=== PATIENT | male | born 1955 | race Asian ===

== ENCOUNTER 2017-05-28 08:53 | Inpatient (IN) | payer MEDICAID ==
[~2017-05-28] VITALS: Ht 157.5 cm; Wt 67.4 kg
[2017-05-28] MEDS ORDERED: ALBUTEROL SULFATE 2.5 MG/0.5 ML NEB SOLUTION NEB ONE (09:15)
[2017-05-28] MEDS ORDERED: IPRATROPIUM BROMIDE 0.5 MG/2.5 ML NEB SOLUTION NEB ONE (09:15)
[2017-05-28 09:30] LABS: HEMOGLOBIN 10.9 g/dL (13.5-17.5); MEAN CORPUSCULAR HEMOGLOBIN 32.9 pg (26.0-34.0); MEAN CORPUSCULAR HGB CONC 33.2 G/dL (31.0-37.0); MEAN CORPUSCULAR VOLUME 99 fL (80-100); PLATELET COUNT (AUTO) 56 K/uL (150-450); RED BLOOD CELL COUNT(AUTO) 3.32 MIL/uL (4.50-5.90); RED CELL DISTRIBUTION WIDTH 18.7 % (11.5-14.5); WHITE BLOOD COUNT (AUTO) 12.7 K/uL (4.5-11.0)
[2017-05-28 09:48] LABS: B-TYPE NATRIURETIC PEPTIDE 1110 pg/mL (0-100)
[2017-05-28 10:00] LABS: BAND NEUTROPHILS % (MANUAL) 20 % (1-5); LYMPHOCYTES % (MANUAL) 6 % (22-44); RBC MORPHOLOGY COMMENT ABNORMAL RBC MORPH; TOTAL CELLS COUNTED 100
[2017-05-28] MEDS ORDERED: FUROSEMIDE 40 MG/4 ML VIAL IVP ONE (10:00)
[2017-05-28] MEDS ORDERED: NITROGLYCERIN 2% (1 GM=INCH) PACKET TP ONE (10:00)
[2017-05-28 10:01] LABS: INR 1.6 (0.9-1.1); PROTHROMBIN TIME 16.8 SEC (9.4-11.6)
[2017-05-28] MEDS ORDERED: CefTRIAXone 1 GM/DEXTROSE 50 ML IV ONE (10:15)
[2017-05-28] MEDS ORDERED: AZITHROMYCIN 250 MG in SODIUM CHLORIDE 0.9% 150 ML IV ONE (10:15)
[2017-05-28 10:24] LABS: ALANINE AMINOTRANSFERASE 496 U/L (12-78); ALBUMIN 5.1 g/dL (3.4-5.0); ANION GAP 29 mmol/L (8-16); ASPARTATE AMINOTRANSFERASE 389 U/L (15-37); BILIRUBIN,TOTAL 6.1 mg/dL (0.1-1.0); CALCIUM, TOTAL 9.7 mg/dL (8.8-10.5); CHLORIDE 105 mmol/L (98-107); CREATINE KINASE MB 76.4 ng/mL (0-5); CREATININE 1.19 mg/dL (0.60-1.30); GLOMERULAR FILTR. RATE CALC > 60 mL/min (>60); POTASSIUM 4.4 mmol/L (3.5-5.1); SODIUM SERUM 143 mmol/L (136-145); TOTAL PROTEIN, SERUM 7.8 g/dL (6.4-8.2); UREA NITROGEN, BLOOD 38 mg/dL (7-18)
[2017-05-28 10:25] LABS: CREATINE KINASE, TOTAL 2620 U/L (39-308)
[2017-05-28 10:29] LABS: CARBON DIOXIDE 9 mmol/L (22-29)
[2017-05-28 10:31] LABS: APPEARANCE,URINE CLEAR (CLEAR); GLUCOSE, URINE (UA) NEGATIVE (NEGATIVE); KETONES,URINE 40 mg/dL (NEGATIVE); LEUKOCYTE ESTERASE ,URINE NEGATIVE (NEGATIVE); PROTEIN,URINE POS 1+ (NEGATIVE)
[2017-05-28 10:48] LABS: ADD UA MICROSCOPIC YES; OCCULT BLOOD,URINE TRACE (NEGATIVE); RBC,URINE 0-2 /HPF (0-2); WBC,URINE None Seen /HPF (0-5)
[2017-05-28 11:12] LABS: ABG BASE EXCESS -17.5 mmol/L (-2.0-3.0); ABG HCO3 12.6 mmol/L (22.0-26.0); ABG OXYHEMOGLOBIN 88.2 % (94.0-100.0); TEMPERATURE, FAHRENHEIT, BG 98.8 FAHREN (96.0-98.6)
[2017-05-28 11:13] LABS: ABG PCO2 17 mmHg (35-45)
[2017-05-28 12:24] LABS: LACTIC ACID 11.4 mmol/L (0.4-2.0)
[2017-05-28] MEDS ORDERED: SUCCINYLCHOLINE CHLORIDE 20 MG/ML 10 ML VIAL ONE (12:53)
[2017-05-28] MEDS ORDERED: RAPID SEQUENCE KIT [RSI] 1 EACH KIT ONE ×2 (12:53)
[2017-05-28] MEDS ORDERED: ONDANSETRON HCL 4 MG/2 ML VIAL ONE (12:59)
[2017-05-28] MEDS ORDERED: PROPOFOL 1000 MG/ISO-OSM 100 ML IV ONE (13:08)
[2017-05-28 13:23] LABS: ACETAMINOPHEN < 2 mcg/mL (10-30); SALICYLATE < 2.8 mg/dL (2.8-20.0)
[2017-05-28 13:34] LABS: REFLEX LACTIC ACID? YES YES
[2017-05-28] MEDS: PROPOFOL 1000 MG/ISO-OSM 100 ML IV PRN ×3 (14:36→23:29)
[2017-05-28] MEDS ORDERED: ONDANSETRON HCL 4 MG/2 ML VIAL IVP ONE (14:45)
[2017-05-28 15:28] VITALS: BP 110/65
[2017-05-28 15:52] LABS: ABG A-A DIFF O2 306.8 mmHg (10-20.0); ABG BASE EXCESS -12.5 mmol/L (-2.0-3.0); ABG HCO3 15.7 mmol/L (22.0-26.0); ABG OXYHEMOGLOBIN 96.3 % (94.0-100.0); ABG PCO2 24 mmHg (35-45); ABG PH 7.353 (7.35-7.450); ALLEN TEST, BLOOD GAS Positive; TEMPERATURE, FAHRENHEIT, BG 98.1 FAHREN (96.0-98.6)
[2017-05-28 16:00] VITALS: BP 86/53
[2017-05-28] MEDS ORDERED: VANCOMYCIN HCL 1 GM/D5% WATER 200 ML IV ONE (16:00)
[2017-05-28] MEDS ORDERED: PNEUMOCOCCAL VACCINE POLYVALENT 0.5 ML VIAL [PPSV23] IM ONE (17:15)
[2017-05-28] MEDS ORDERED: SODIUM CHLORIDE 0.9% 250 ML IV ONE (17:28)
[2017-05-28] MEDS ORDERED: BARIUM SULFATE 0.1% SUSPENSION 450 ML BOTTLE ONE (17:34)
[2017-05-28] MEDS ORDERED: SODIUM BICARBONATE [ADULT] 8.4% 50 MEQ/50 ML SYRINGE IVP ONE (18:30)
[2017-05-28] MEDS: NOREPINEPHRINE 4 MG/D5%-WATER 250 ML IV PRN (19:16)
[2017-05-28] MEDS: SODIUM BICARBONATE 100 MEQ in DEXTROSE 5%-WATER 1,000 ML IV SCH (19:16)
[2017-05-28 20:00] VITALS: BP 85/53
[2017-05-28 21:32] LABS: INFLUENZA TYPE B NEGATIVE FOR TYPE B (NEGATIVE)
[2017-05-29] VITALS (8 sets, daily range): BP systolic 83–103; BP diastolic 5–59
[2017-05-29] MEDS: PROPOFOL 1000 MG/ISO-OSM 100 ML IV PRN ×3 (04:07→20:15)
[2017-05-29] MEDS: NOREPINEPHRINE 4 MG/D5%-WATER 250 ML IV PRN (05:42)
[2017-05-29 05:49] LABS: ANION GAP 7 mmol/L (8-16); CALCIUM, TOTAL 8.1 mg/dL (8.8-10.5); CARBON DIOXIDE 27 mmol/L (22-29); CHLORIDE 106 mmol/L (98-107); CREATININE 1.03 mg/dL (0.60-1.30); GLOMERULAR FILTR. RATE CALC > 60 mL/min (>60); POTASSIUM 3.5 mmol/L (3.5-5.1); SODIUM SERUM 140 mmol/L (136-145); THYROID STIMULATING HORMONE 0.31 uIU/mL (0.36-3.74); UREA NITROGEN, BLOOD 33 mg/dL (7-18)
[2017-05-29 06:06] LABS: PHOSPHORUS 1.2 mg/dL (2.5-4.9)
[2017-05-29 06:10] LABS: EOSINOPHILS % (AUTO) 0.3 % (1.0-6.0); HEMATOCRIT 27.9 % (41-53); HEMOGLOBIN 9.5 g/dL (13.5-17.5); LYMPHOCYTES # (AUTO) 0.3 K/uL (1.0-4.8); LYMPHOCYTES % (AUTO) 4.3 % (22.0-44.0); MEAN CORPUSCULAR HEMOGLOBIN 33.1 pg (26.0-34.0); MEAN CORPUSCULAR HGB CONC 33.9 G/dL (31.0-37.0); MEAN CORPUSCULAR VOLUME 98 fL (80-100); MONOCYTES # (AUTO) 0.2 K/uL (0.1-1.0); MONOCYTES % (AUTO) 2.2 % (2.0-9.0); NEUTROPHILS # (AUTO) 6.6 K/uL (1.8-7.7); PLATELET COUNT (AUTO) 42 K/uL (150-450); RED BLOOD CELL COUNT(AUTO) 2.86 MIL/uL (4.50-5.90); RED CELL DISTRIBUTION WIDTH 18.3 % (11.5-14.5); WHITE BLOOD COUNT (AUTO) 7.1 K/uL (4.5-11.0)
[2017-05-29 06:18] LABS: NEUTROPHILS % (AUTO) 93.2 % (40.0-70.0)
[2017-05-29] MEDS ORDERED: ALBUTEROL SULFATE 2.5 MG/0.5 ML NEB SOLUTION NEB PRN (07:15)
[2017-05-29] MEDS ORDERED: POTASSIUM PHOS,M-BASIC-D-BASIC 30 MEQ in DEXTROSE 5%-WATER 150 ML IV ONE (07:15)
[2017-05-29] MEDS ORDERED: IPRATROPIUM BROMIDE 0.5 MG/2.5 ML NEB SOLUTION NEB PRN (07:15)
[2017-05-29] MEDS ORDERED: ONDANSETRON HCL 4 MG/2 ML VIAL IVP PRN (07:15)
[2017-05-29 07:48] LABS: ALANINE AMINOTRANSFERASE 344 U/L (12-78); ALBUMIN 3.7 g/dL (3.4-5.0); ASPARTATE AMINOTRANSFERASE 225 U/L (15-37); TOTAL PROTEIN, SERUM 5.5 g/dL (6.4-8.2)
[2017-05-29 07:49] LABS: B-TYPE NATRIURETIC PEPTIDE 454 pg/mL (0-100)
[2017-05-29] MEDS: VANCOMYCIN HCL 1 GM/D5% WATER 200 ML IV SCH ×2 (08:38→20:13)
[2017-05-29] MEDS: PANTOPRAZOLE SODIUM 40 MG/VIAL IVP SCH (08:38)
[2017-05-29] MEDS: CefTRIAXone 1 GM/DEXTROSE 50 ML IV SCH (08:39)
[2017-05-29 09:27] LABS: RBC MORPHOLOGY COMMENT ABNORMAL RBC MORPH
[2017-05-29 09:29] LABS: ABG BASE EXCESS 6.5 mmol/L (-2.0-3.0); ABG HCO3 30.1 mmol/L (22.0-26.0); ABG OXYHEMOGLOBIN 95.8 % (94.0-100.0); ABG PCO2 34 mmHg (35-45); ABG PH 7.543 (7.35-7.450); TEMPERATURE, FAHRENHEIT, BG 98.8 FAHREN (96.0-98.6)
[2017-05-29] MEDS: AZITHROMYCIN 500 MG/NS 250 ML IV SCH (10:00)
[2017-05-29] MEDS: SODIUM BICARBONATE 100 MEQ in DEXTROSE 5%-WATER 1,000 ML IV SCH (10:13)
[2017-05-29] MEDS ORDERED: SODIUM CHLORIDE 0.9% 250 ML IV ONE (11:50)
[2017-05-29] MEDS ORDERED: ETOMIDATE 2 MG/ML 10 ML VIAL IV ONE (17:01)
[2017-05-30] VITALS (8 sets, daily range): BP systolic 89–103; BP diastolic 50–65
[2017-05-30] MEDS: SODIUM BICARBONATE 100 MEQ in DEXTROSE 5%-WATER 1,000 ML IV SCH ×2 (01:36→17:38)
[2017-05-30] MEDS: PROPOFOL 1000 MG/ISO-OSM 100 ML IV PRN ×4 (03:38→18:45)
[2017-05-30 05:55] LABS: ALANINE AMINOTRANSFERASE 242 U/L (12-78); ALBUMIN 3.2 g/dL (3.4-5.0); ANION GAP 10 mmol/L (8-16); ASPARTATE AMINOTRANSFERASE 143 U/L (15-37); BILIRUBIN,TOTAL 5.6 mg/dL (0.1-1.0); CALCIUM, TOTAL 7.9 mg/dL (8.8-10.5); CARBON DIOXIDE 26 mmol/L (22-29); CHLORIDE 105 mmol/L (98-107); CREATININE 0.81 mg/dL (0.60-1.30); GLOMERULAR FILTR. RATE CALC > 60 mL/min (>60); PHOSPHORUS 1.7 mg/dL (2.5-4.9); POTASSIUM 3.3 mmol/L (3.5-5.1); SODIUM SERUM 141 mmol/L (136-145); TOTAL PROTEIN, SERUM 5.5 g/dL (6.4-8.2); UREA NITROGEN, BLOOD 20 mg/dL (7-18)
[2017-05-30] MEDS: NOREPINEPHRINE 4 MG/D5%-WATER 250 ML IV PRN ×2 (06:09→22:13)
[2017-05-30 06:43] LABS: EOSINOPHILS % (AUTO) 2.6 % (1.0-6.0); HEMATOCRIT 27.8 % (41-53); HEMOGLOBIN 9.5 g/dL (13.5-17.5); LYMPHOCYTES # (AUTO) 0.4 K/uL (1.0-4.8); MEAN CORPUSCULAR HGB CONC 34.2 G/dL (31.0-37.0); MEAN CORPUSCULAR VOLUME 97 fL (80-100); MONOCYTES # (AUTO) 0.2 K/uL (0.1-1.0); MONOCYTES % (AUTO) 2.8 % (2.0-9.0); NEUTROPHILS # (AUTO) 5.5 K/uL (1.8-7.7); NEUTROPHILS % (AUTO) 88.6 % (40.0-70.0); PLATELET COUNT (AUTO) 42 K/uL (150-450); RED BLOOD CELL COUNT(AUTO) 2.88 MIL/uL (4.50-5.90); RED CELL DISTRIBUTION WIDTH 18.2 % (11.5-14.5); WHITE BLOOD COUNT (AUTO) 6.2 K/uL (4.5-11.0)
[2017-05-30] MEDS: VANCOMYCIN HCL 1 GM/D5% WATER 200 ML IV SCH ×2 (08:00→19:51)
[2017-05-30] MEDS: PANTOPRAZOLE SODIUM 40 MG/VIAL IVP SCH (08:00)
[2017-05-30] MEDS: CefTRIAXone 1 GM/DEXTROSE 50 ML IV SCH (08:01)
[2017-05-30 08:39] LABS: RBC MORPHOLOGY COMMENT ABNORMAL RBC MORPH
[2017-05-30] MEDS: AZITHROMYCIN 500 MG/NS 250 ML IV SCH (09:35)
[2017-05-30] MEDS ORDERED: WATER IV ONE (13:15)
[2017-05-30] MEDS ORDERED: DEXTROSE 5% IV ONE (13:15)
[2017-05-30] MEDS ORDERED: POTASSIUM PHOS M BASIC D BASIC IV ONE (13:15)
[2017-05-30] MEDS: ALBUMIN HUMAN 25%-12.5GM/50ML 50 ML IV SCH (14:28)
[2017-05-30] MEDS ORDERED: PNEUMOCOCCAL VACCINE POLYVALENT 0.5 ML VIAL [PPSV23] IM ONE (23:15)
[2017-05-31] VITALS: BP 100/59
[2017-05-31] MEDS: ALBUMIN HUMAN 25%-12.5GM/50ML 50 ML IV SCH ×2 (01:31→13:46)
[2017-05-31 04:00] VITALS: BP 101/35
[2017-05-31] MEDS: PROPOFOL 1000 MG/ISO-OSM 100 ML IV PRN ×4 (04:00→18:08)
[2017-05-31 05:28] LABS: EOSINOPHILS % (AUTO) 6.3 % (1.0-6.0); HEMATOCRIT 28.5 % (41-53); HEMOGLOBIN 9.5 g/dL (13.5-17.5); LYMPHOCYTES # (AUTO) 0.3 K/uL (1.0-4.8); LYMPHOCYTES % (AUTO) 7.7 % (22.0-44.0); MEAN CORPUSCULAR HEMOGLOBIN 32.4 pg (26.0-34.0); MEAN CORPUSCULAR HGB CONC 33.4 G/dL (31.0-37.0); MEAN CORPUSCULAR VOLUME 97 fL (80-100); MONOCYTES # (AUTO) 0.1 K/uL (0.1-1.0); MONOCYTES % (AUTO) 2.2 % (2.0-9.0); NEUTROPHILS # (AUTO) 3.8 K/uL (1.8-7.7); NEUTROPHILS % (AUTO) 83.8 % (40.0-70.0); PLATELET COUNT (AUTO) 39 K/uL (150-450); RED BLOOD CELL COUNT(AUTO) 2.94 MIL/uL (4.50-5.90); RED CELL DISTRIBUTION WIDTH 18.3 % (11.5-14.5); WHITE BLOOD COUNT (AUTO) 4.5 K/uL (4.5-11.0)
[2017-05-31 07:15] LABS: ALANINE AMINOTRANSFERASE 174 U/L (12-78); ALBUMIN 3.3 g/dL (3.4-5.0); ANION GAP 7 mmol/L (8-16); ASPARTATE AMINOTRANSFERASE 88 U/L (15-37); BILIRUBIN,TOTAL 6.1 mg/dL (0.1-1.0); CALCIUM, TOTAL 7.9 mg/dL (8.8-10.5); CARBON DIOXIDE 28 mmol/L (22-29); CHLORIDE 105 mmol/L (98-107); GLOMERULAR FILTR. RATE CALC > 60 mL/min (>60); POTASSIUM 3.5 mmol/L (3.5-5.1); SODIUM SERUM 140 mmol/L (136-145); TOTAL PROTEIN, SERUM 5.3 g/dL (6.4-8.2); UREA NITROGEN, BLOOD 12 mg/dL (7-18)
[2017-05-31 07:27] LABS: RBC MORPHOLOGY COMMENT ABNORMAL RBC MORPH
[2017-05-31] MEDS ORDERED: SODIUM CHLORIDE 0.9% 250 ML IV ONE (07:42)
[2017-05-31] MEDS: CefTRIAXone 1 GM/DEXTROSE 50 ML IV SCH (07:50)
[2017-05-31] MEDS: PANTOPRAZOLE SODIUM 40 MG/VIAL IVP SCH (07:50)
[2017-05-31 08:00] VITALS: BP 121/72
[2017-05-31] MEDS: VANCOMYCIN HCL 1.25 GM in DEXTROSE 5%-WATER 250 ML IV SCH ×3 (08:25→23:47)
[2017-05-31] MEDS: SODIUM BICARBONATE 100 MEQ in DEXTROSE 5%-WATER 1,000 ML IV SCH (08:26)
[2017-05-31] MEDS: AZITHROMYCIN 500 MG/NS 250 ML IV SCH (09:12)
[2017-05-31] MEDS ORDERED: POTASSIUM CHLORIDE 10% 40 MEQ/30 ML LIQUID UDCUP NG ONE (10:30)
[2017-05-31] MEDS ORDERED: SODIUM CHLORIDE 0.9% 1,000 ML IV ONE (10:30)
[2017-05-31] MEDS: POTASSIUM PHOS/SODIUM PHOS MIXTURE 1 POWDER PACKET NG SCH ×2 (10:53→20:07)
[2017-05-31 12:00] VITALS: BP 87/57
[2017-05-31 16:00] VITALS: BP 101/58
[2017-05-31 20:00] VITALS: BP 101/61
[2017-06-01] VITALS: BP 102/59
[2017-06-01] MEDS: PROPOFOL 1000 MG/ISO-OSM 100 ML IV PRN ×4 (00:53→18:33)
[2017-06-01] MEDS: SODIUM BICARBONATE 100 MEQ in DEXTROSE 5%-WATER 1,000 ML IV SCH (01:05)
[2017-06-01] MEDS: ALBUMIN HUMAN 25%-12.5GM/50ML 50 ML IV SCH (01:30)
[2017-06-01] MEDS: NOREPINEPHRINE 4 MG/D5%-WATER 250 ML IV PRN (02:45)
[2017-06-01 04:00] VITALS: BP 108/57
[2017-06-01 05:19] LABS: ALANINE AMINOTRANSFERASE 124 U/L (12-78); ALBUMIN 3.1 g/dL (3.4-5.0); ANION GAP 5 mmol/L (8-16); ASPARTATE AMINOTRANSFERASE 53 U/L (15-37); BILIRUBIN,TOTAL 4.3 mg/dL (0.1-1.0); CALCIUM, TOTAL 7.6 mg/dL (8.8-10.5); CARBON DIOXIDE 28 mmol/L (22-29); CHLORIDE 105 mmol/L (98-107); GLOMERULAR FILTR. RATE CALC > 60 mL/min (>60); PHOSPHORUS 1.9 mg/dL (2.5-4.9); POTASSIUM 3.4 mmol/L (3.5-5.1); SODIUM SERUM 138 mmol/L (136-145); UREA NITROGEN, BLOOD 8 mg/dL (7-18)
[2017-06-01 06:05] LABS: BASOPHILS % (AUTO) 0.4 % (0.0-2.0); EOSINOPHILS % (AUTO) 6.3 % (1.0-6.0); HEMATOCRIT 27.7 % (41-53); HEMOGLOBIN 9.4 g/dL (13.5-17.5); LYMPHOCYTES # (AUTO) 0.3 K/uL (1.0-4.8); LYMPHOCYTES % (AUTO) 8.5 % (22.0-44.0); MEAN CORPUSCULAR HEMOGLOBIN 33.1 pg (26.0-34.0); MEAN CORPUSCULAR HGB CONC 33.8 G/dL (31.0-37.0); MEAN CORPUSCULAR VOLUME 98 fL (80-100); MONOCYTES # (AUTO) 0.1 K/uL (0.1-1.0); MONOCYTES % (AUTO) 4.7 % (2.0-9.0); NEUTROPHILS # (AUTO) 2.4 K/uL (1.8-7.7); NEUTROPHILS % (AUTO) 80.1 % (40.0-70.0); PLATELET COUNT (AUTO) 38 K/uL (150-450); RED BLOOD CELL COUNT(AUTO) 2.83 MIL/uL (4.50-5.90); RED CELL DISTRIBUTION WIDTH 18.2 % (11.5-14.5)
[2017-06-01 08:00] VITALS: BP 94/56
[2017-06-01] MEDS ORDERED: POTASSIUM CHLORIDE 10% 40 MEQ/30 ML LIQUID UDCUP NG ONE (08:15)
[2017-06-01 09:12] LABS: RBC MORPHOLOGY COMMENT ABNORMAL RBC MORPH
[2017-06-01] MEDS ORDERED: SODIUM CHLORIDE 0.9% 250 ML IV ONE (09:22)
[2017-06-01] MEDS: PANTOPRAZOLE SODIUM 40 MG/VIAL IVP SCH (09:33)
[2017-06-01] MEDS: POTASSIUM PHOS/SODIUM PHOS MIXTURE 1 POWDER PACKET NG SCH ×2 (09:33→21:20)
[2017-06-01] MEDS: VANCOMYCIN HCL 1.25 GM in DEXTROSE 5%-WATER 250 ML IV SCH ×3 (09:35→23:51)
[2017-06-01] MEDS: CefTRIAXone 1 GM/DEXTROSE 50 ML IV SCH (09:35)
[2017-06-01] MEDS: AZITHROMYCIN 500 MG/NS 250 ML IV SCH (09:36)
[2017-06-01 10:30] LABS: ABG A-A DIFF O2 110.7 mmHg (10-20.0); ABG HCO3 27.1 mmol/L (22.0-26.0); ABG OXYHEMOGLOBIN 90.6 % (94.0-100.0); ABG PCO2 36 mmHg (35-45); ABG PH 7.486 (7.35-7.450); TEMPERATURE, FAHRENHEIT, BG 98.6 FAHREN (96.0-98.6)
[2017-06-01 10:33] LABS: ALLEN TEST, BLOOD GAS POSITIVE
[2017-06-01 12:32] LABS: ORGANISM ID Not indicated.
[2017-06-01] MEDS ORDERED: ALBUMIN HUMAN 25%-12.5GM/50ML 50 ML IV PRN (14:00)
[2017-06-01 18:23] VITALS: BP 96/57
[2017-06-01 20:00] VITALS: BP 98/56
[2017-06-01 22:00] VITALS: BP 95/59
[2017-06-02] VITALS (8 sets, daily range): BP systolic 91–108; BP diastolic 51–67
[2017-06-02] MEDS: PROPOFOL 1000 MG/ISO-OSM 100 ML IV PRN ×2 (03:19→21:21)
[2017-06-02 04:53] LABS: BASOPHILS % (AUTO) 0.4 % (0.0-2.0); HEMATOCRIT 28.1 % (41-53); HEMOGLOBIN 9.5 g/dL (13.5-17.5); LYMPHOCYTES # (AUTO) 0.2 K/uL (1.0-4.8); LYMPHOCYTES % (AUTO) 6.8 % (22.0-44.0); MEAN CORPUSCULAR HEMOGLOBIN 32.9 pg (26.0-34.0); MEAN CORPUSCULAR HGB CONC 33.7 G/dL (31.0-37.0); MEAN CORPUSCULAR VOLUME 98 fL (80-100); MONOCYTES # (AUTO) 0.1 K/uL (0.1-1.0); MONOCYTES % (AUTO) 3.2 % (2.0-9.0); NEUTROPHILS # (AUTO) 2.8 K/uL (1.8-7.7); PLATELET COUNT (AUTO) 40 K/uL (150-450); RED BLOOD CELL COUNT(AUTO) 2.88 MIL/uL (4.50-5.90); RED CELL DISTRIBUTION WIDTH 17.8 % (11.5-14.5); WHITE BLOOD COUNT (AUTO) 3.3 K/uL (4.5-11.0)
[2017-06-02 04:54] LABS: NEUTROPHILS % (AUTO) 86.6 % (40.0-70.0)
[2017-06-02 05:23] LABS: ALANINE AMINOTRANSFERASE 102 U/L (12-78); ALBUMIN 2.9 g/dL (3.4-5.0); ANION GAP 5 mmol/L (8-16); ASPARTATE AMINOTRANSFERASE 50 U/L (15-37); BILIRUBIN,TOTAL 2.9 mg/dL (0.1-1.0); CARBON DIOXIDE 27 mmol/L (22-29); CHLORIDE 104 mmol/L (98-107); CREATININE 0.62 mg/dL (0.60-1.30); GLOMERULAR FILTR. RATE CALC > 60 mL/min (>60); POTASSIUM 4.3 mmol/L (3.5-5.1); SODIUM SERUM 136 mmol/L (136-145); TOTAL PROTEIN, SERUM 4.9 g/dL (6.4-8.2); UREA NITROGEN, BLOOD 9 mg/dL (7-18)
[2017-06-02 06:49] LABS: RBC MORPHOLOGY COMMENT ABNORMAL RBC MORPH
[2017-06-02] MEDS: VANCOMYCIN HCL 1.25 GM in DEXTROSE 5%-WATER 250 ML IV SCH ×3 (08:15→23:24)
[2017-06-02] MEDS: CefTRIAXone 1 GM/DEXTROSE 50 ML IV SCH (08:18)
[2017-06-02] MEDS: POTASSIUM PHOS/SODIUM PHOS MIXTURE 1 POWDER PACKET NG SCH ×2 (08:18→20:38)
[2017-06-02] MEDS: PANTOPRAZOLE SODIUM 40 MG/VIAL IVP SCH (08:25)
[2017-06-02] MEDS: AZITHROMYCIN 500 MG/NS 250 ML IV SCH (10:53)
[2017-06-02 15:01] LABS: ABG A-A DIFF O2 118.1 mmHg (10-20.0); ABG BASE EXCESS 1.7 mmol/L (-2.0-3.0); ABG HCO3 26.2 mmol/L (22.0-26.0); ABG OXYHEMOGLOBIN 89.7 % (94.0-100.0); ABG PCO2 32 mmHg (35-45); ABG PH 7.506 (7.35-7.450); ALLEN TEST, BLOOD GAS Positive; TEMPERATURE, FAHRENHEIT, BG 98.5 FAHREN (96.0-98.6)
[2017-06-02] MEDS ORDERED: SODIUM CHLORIDE 0.9% 250 ML IV ONE (21:18)
[2017-06-03] VITALS: BP 101/62
[2017-06-03 04:00] VITALS: BP 112/63
[2017-06-03] MEDS: PROPOFOL 1000 MG/ISO-OSM 100 ML IV PRN ×2 (04:39→16:02)
[2017-06-03 05:51] LABS: BASOPHILS % (AUTO) 0.1 % (0.0-2.0); EOSINOPHILS % (AUTO) 1.9 % (1.0-6.0); HEMATOCRIT 27.7 % (41-53); HEMOGLOBIN 9.4 g/dL (13.5-17.5); LYMPHOCYTES # (AUTO) 0.3 K/uL (1.0-4.8); LYMPHOCYTES % (AUTO) 6.8 % (22.0-44.0); MEAN CORPUSCULAR HEMOGLOBIN 32.7 pg (26.0-34.0); MEAN CORPUSCULAR HGB CONC 33.7 G/dL (31.0-37.0); MEAN CORPUSCULAR VOLUME 97 fL (80-100); MONOCYTES # (AUTO) 0.2 K/uL (0.1-1.0); MONOCYTES % (AUTO) 5.6 % (2.0-9.0); NEUTROPHILS # (AUTO) 3.4 K/uL (1.8-7.7); PLATELET COUNT (AUTO) 35 K/uL (150-450); RED BLOOD CELL COUNT(AUTO) 2.86 MIL/uL (4.50-5.90); RED CELL DISTRIBUTION WIDTH 18.8 % (11.5-14.5)
[2017-06-03 06:03] LABS: NEUTROPHILS % (AUTO) 85.6 % (40.0-70.0)
[2017-06-03 06:20] LABS: ALANINE AMINOTRANSFERASE 84 U/L (12-78); ALBUMIN 2.8 g/dL (3.4-5.0); ANION GAP 7 mmol/L (8-16); ASPARTATE AMINOTRANSFERASE 43 U/L (15-37); CARBON DIOXIDE 26 mmol/L (22-29); CHLORIDE 105 mmol/L (98-107); CREATINE KINASE, TOTAL 53 U/L (39-308); CREATININE 0.74 mg/dL (0.60-1.30); GLOMERULAR FILTR. RATE CALC > 60 mL/min (>60); SODIUM SERUM 138 mmol/L (136-145); TOTAL PROTEIN, SERUM 4.9 g/dL (6.4-8.2); UREA NITROGEN, BLOOD 10 mg/dL (7-18)
[2017-06-03 08:00] VITALS: BP 105/67
[2017-06-03] MEDS: AZITHROMYCIN 500 MG/NS 250 ML IV SCH (08:24)
[2017-06-03] MEDS: VANCOMYCIN HCL 1.25 GM in DEXTROSE 5%-WATER 250 ML IV SCH ×2 (08:24→16:02)
[2017-06-03] MEDS: POTASSIUM PHOS/SODIUM PHOS MIXTURE 1 POWDER PACKET NG SCH ×2 (08:24→20:15)
[2017-06-03] MEDS: PANTOPRAZOLE SODIUM 40 MG/VIAL IVP SCH (08:24)
[2017-06-03] MEDS: CefTRIAXone 1 GM/DEXTROSE 50 ML IV SCH (08:25)
[2017-06-03 08:30] LABS: RBC MORPHOLOGY COMMENT ABNORMAL RBC MORPH
[2017-06-03 12:00] VITALS: BP 99/57
[2017-06-03 16:00] VITALS: BP 107/59
[2017-06-03 17:11] LABS: ABG A-A DIFF O2 134.2 mmHg (10-20.0); ABG BASE EXCESS 3.1 mmol/L (-2.0-3.0); ABG HCO3 27.1 mmol/L (22.0-26.0); ABG OXYHEMOGLOBIN 94.1 % (94.0-100.0); ABG PCO2 37 mmHg (35-45); ABG PH 7.477 (7.35-7.450); ALLEN TEST, BLOOD GAS Positive; TEMPERATURE, FAHRENHEIT, BG 98.6 FAHREN (96.0-98.6)
[2017-06-03 20:00] VITALS: BP 98/66
[2017-06-03 20:17] LABS: ABG A-A DIFF O2 108.4 mmHg (10-20.0); ABG BASE EXCESS 1.7 mmol/L (-2.0-3.0); ABG HCO3 26.2 mmol/L (22.0-26.0); ABG PCO2 34 mmHg (35-45); ABG PH 7.484 (7.35-7.450); ALLEN TEST, BLOOD GAS POS; TEMPERATURE, FAHRENHEIT, BG 98.5 FAHREN (96.0-98.6)
[2017-06-04] VITALS: BP 99/57
[2017-06-04] MEDS: VANCOMYCIN HCL 1.25 GM in DEXTROSE 5%-WATER 250 ML IV SCH ×4 (00:21→23:16)
[2017-06-04 04:00] VITALS: BP 104/60
[2017-06-04] MEDS: PROPOFOL 1000 MG/ISO-OSM 100 ML IV PRN (05:01)
[2017-06-04 05:45] LABS: ALANINE AMINOTRANSFERASE 68 U/L (12-78); ALBUMIN 2.7 g/dL (3.4-5.0); ANION GAP 4 mmol/L (8-16); ASPARTATE AMINOTRANSFERASE 41 U/L (15-37); BILIRUBIN,TOTAL 2.6 mg/dL (0.1-1.0); CARBON DIOXIDE 28 mmol/L (22-29); CHLORIDE 108 mmol/L (98-107); CREATININE 0.62 mg/dL (0.60-1.30); GLOMERULAR FILTR. RATE CALC > 60 mL/min (>60); POTASSIUM 4.2 mmol/L (3.5-5.1); SODIUM SERUM 140 mmol/L (136-145); TOTAL PROTEIN, SERUM 4.7 g/dL (6.4-8.2); UREA NITROGEN, BLOOD 13 mg/dL (7-18)
[2017-06-04 05:49] LABS: BASOPHILS % (AUTO) 0.2 % (0.0-2.0); EOSINOPHILS % (AUTO) 1.9 % (1.0-6.0); HEMATOCRIT 26.9 % (41-53); LYMPHOCYTES # (AUTO) 0.2 K/uL (1.0-4.8); MEAN CORPUSCULAR HEMOGLOBIN 32.9 pg (26.0-34.0); MEAN CORPUSCULAR HGB CONC 33.5 G/dL (31.0-37.0); MEAN CORPUSCULAR VOLUME 98 fL (80-100); MONOCYTES # (AUTO) 0.3 K/uL (0.1-1.0); MONOCYTES % (AUTO) 7.8 % (2.0-9.0); NEUTROPHILS % (AUTO) 84.1 % (40.0-70.0); PLATELET COUNT (AUTO) 33 K/uL (150-450); RED BLOOD CELL COUNT(AUTO) 2.74 MIL/uL (4.50-5.90); RED CELL DISTRIBUTION WIDTH 18.4 % (11.5-14.5); WHITE BLOOD COUNT (AUTO) 3.5 K/uL (4.5-11.0)
[2017-06-04] MEDS: PANTOPRAZOLE SODIUM 40 MG/VIAL IVP SCH (07:59)
[2017-06-04 08:00] VITALS: BP 107/60
[2017-06-04] MEDS: POTASSIUM PHOS/SODIUM PHOS MIXTURE 1 POWDER PACKET NG SCH ×2 (08:00→20:34)
[2017-06-04] MEDS: CefTRIAXone 1 GM/DEXTROSE 50 ML IV SCH (08:00)
[2017-06-04 08:03] LABS: ABG A-A DIFF O2 134.4 mmHg (10-20.0); ABG BASE EXCESS 2.9 mmol/L (-2.0-3.0); ABG OXYHEMOGLOBIN 93.5 % (94.0-100.0); ABG PCO2 37 mmHg (35-45); TEMPERATURE, FAHRENHEIT, BG 98.6 FAHREN (96.0-98.6)
[2017-06-04 08:06] LABS: ALLEN TEST, BLOOD GAS Positive
[2017-06-04 09:13] LABS: RBC MORPHOLOGY COMMENT ABNORMAL RBC MORPH
[2017-06-04] MEDS: AZITHROMYCIN 500 MG/NS 250 ML IV SCH (10:10)
[2017-06-04 12:00] VITALS: BP 105/63
[2017-06-04 13:53] LABS: ABG A-A DIFF O2 112.8 mmHg (10-20.0); ABG BASE EXCESS 2.9 mmol/L (-2.0-3.0); ABG HCO3 27.1 mmol/L (22.0-26.0); ABG OXYHEMOGLOBIN 95.8 % (94.0-100.0); ABG PCO2 37 mmHg (35-45); ABG PH 7.476 (7.35-7.450); TEMPERATURE, FAHRENHEIT, BG 98.6 FAHREN (96.0-98.6)
[2017-06-04 14:00] LABS: ALLEN TEST, BLOOD GAS Positive
[2017-06-04 16:00] VITALS: BP 106/63
[2017-06-04 16:08] LABS: ABG A-A DIFF O2 82.9 mmHg (10-20.0); ABG BASE EXCESS 2.7 mmol/L (-2.0-3.0); ABG HCO3 26.9 mmol/L (22.0-26.0); ABG OXYHEMOGLOBIN 94.7 % (94.0-100.0); ABG PCO2 36 mmHg (35-45); ABG PH 7.484 (7.35-7.450); TEMPERATURE, FAHRENHEIT, BG 97.6 FAHREN (96.0-98.6)
[2017-06-04 16:27] LABS: ALLEN TEST, BLOOD GAS Positive
[2017-06-04 20:00] VITALS: BP 119/65
[2017-06-05] VITALS: BP 117/71
[2017-06-05 04:00] VITALS: BP 102/51
[2017-06-05 06:01] LABS: ALANINE AMINOTRANSFERASE 60 U/L (12-78); ALBUMIN 2.7 g/dL (3.4-5.0); ANION GAP 4 mmol/L (8-16); ASPARTATE AMINOTRANSFERASE 45 U/L (15-37); BILIRUBIN,TOTAL 3.3 mg/dL (0.1-1.0); CALCIUM, TOTAL 8.2 mg/dL (8.8-10.5); CARBON DIOXIDE 28 mmol/L (22-29); CHLORIDE 109 mmol/L (98-107); CREATININE 0.65 mg/dL (0.60-1.30); GLOMERULAR FILTR. RATE CALC > 60 mL/min (>60); POTASSIUM 4.1 mmol/L (3.5-5.1); SODIUM SERUM 141 mmol/L (136-145); TOTAL PROTEIN, SERUM 4.8 g/dL (6.4-8.2); UREA NITROGEN, BLOOD 13 mg/dL (7-18)
[2017-06-05 08:00] VITALS: BP 110/61
[2017-06-05 08:01] LABS: BASOPHILS # (AUTO) 0.02 K/uL (0.00-0.20); BASOPHILS % (AUTO) 0.6 % (0.0-2.0); EOSINOPHILS # (AUTO) 0.07 K/uL (0.00-0.70); EOSINOPHILS % (AUTO) 2.65 % (1.0-6.0); HEMATOCRIT 27.3 % (41-53); HEMOGLOBIN 9.2 g/dL (13.5-17.5); LYMPHOCYTES # (AUTO) 0.3 K/uL (1.0-4.8); LYMPHOCYTES % (AUTO) 10.8 % (22.0-44.0); MEAN CORPUSCULAR HEMOGLOBIN 32.5 pg (26.0-34.0); MEAN CORPUSCULAR HGB CONC 33.6 G/dL (31.0-37.0); MEAN CORPUSCULAR VOLUME 97 fL (80-100); MONOCYTES # (AUTO) 0.3 K/uL (0.1-1.0); MONOCYTES % (AUTO) 12.7 % (2.0-9.0); NEUTROPHILS % (AUTO) 73.3 % (40.0-70.0); PLATELET COUNT (AUTO) 38 K/uL (150-450); RED BLOOD CELL COUNT(AUTO) 2.82 MIL/uL (4.50-5.90); RED CELL DISTRIBUTION WIDTH 18.8 % (11.5-14.5); WHITE BLOOD COUNT (AUTO) 2.7 K/uL (4.5-11.0)
[2017-06-05] MEDS: VANCOMYCIN HCL 1.25 GM in DEXTROSE 5%-WATER 250 ML IV SCH ×3 (08:26→23:31)
[2017-06-05] MEDS: PANTOPRAZOLE SODIUM 40 MG/VIAL IVP SCH (08:44)
[2017-06-05 10:04] LABS: RBC MORPHOLOGY COMMENT ABNORMAL RBC MORPH
[2017-06-05 11:30] VITALS: BP 122/65
[2017-06-05] MEDS ORDERED: SODIUM CHLORIDE 0.9% 100 ML ONE (12:01)
[2017-06-05] MEDS: AZITHROMYCIN 500 MG/NS 250 ML IV SCH (12:37)
[2017-06-05] MEDS: CefTRIAXone 1 GM/DEXTROSE 50 ML IV SCH (12:37)
[2017-06-05 15:31] VITALS: BP 118/68
[2017-06-05 19:26] VITALS: BP 114/66
[2017-06-05] MEDS: POTASSIUM PHOS/SODIUM PHOS MIXTURE 1 POWDER PACKET PO SCH (20:34)
[2017-06-06] VITALS (7 sets, daily range): BP systolic 107–121; BP diastolic 54–64
[2017-06-06 06:38] LABS: ALANINE AMINOTRANSFERASE 59 U/L (12-78); ANION GAP 4 mmol/L (8-16); ASPARTATE AMINOTRANSFERASE 53 U/L (15-37); BILIRUBIN,TOTAL 3.9 mg/dL (0.1-1.0); CALCIUM, TOTAL 8.4 mg/dL (8.8-10.5); CARBON DIOXIDE 28 mmol/L (22-29); CHLORIDE 109 mmol/L (98-107); CREATININE 0.77 mg/dL (0.60-1.30); GLOMERULAR FILTR. RATE CALC > 60 mL/min (>60); POTASSIUM 4.7 mmol/L (3.5-5.1); SODIUM SERUM 141 mmol/L (136-145); TOTAL PROTEIN, SERUM 5.2 g/dL (6.4-8.2); UREA NITROGEN, BLOOD 16 mg/dL (7-18)
[2017-06-06] MEDS: VANCOMYCIN HCL 1.25 GM in DEXTROSE 5%-WATER 250 ML IV SCH ×3 (07:51→23:26)
[2017-06-06] MEDS: PANTOPRAZOLE SODIUM 40 MG/VIAL IVP SCH (07:51)
[2017-06-06] MEDS ORDERED: SODIUM CHLORIDE 0.9% 100 ML ONE ×2 (07:53→10:59)
[2017-06-06] MEDS: POTASSIUM PHOS/SODIUM PHOS MIXTURE 1 POWDER PACKET PO SCH ×2 (08:02→20:16)
[2017-06-06] MEDS: CefTRIAXone 1 GM/DEXTROSE 50 ML IV SCH (09:51)
[2017-06-06] MEDS: AZITHROMYCIN 500 MG/NS 250 ML IV SCH (10:52)
[2017-06-06] MEDS: NYSTATIN 15 GM POWDER BOTTLE TP SCH (20:16)
[2017-06-07 05:01] VITALS: BP 107/63
[2017-06-07 07:43] VITALS: BP 124/82
[2017-06-07] MEDS: VANCOMYCIN HCL 1.25 GM in DEXTROSE 5%-WATER 250 ML IV SCH ×3 (08:18→23:52)
[2017-06-07] MEDS: PANTOPRAZOLE SODIUM 40 MG/VIAL IVP SCH (08:26)
[2017-06-07] MEDS: POTASSIUM PHOS/SODIUM PHOS MIXTURE 1 POWDER PACKET PO SCH ×2 (08:26→20:03)
[2017-06-07 08:37] LABS: ALANINE AMINOTRANSFERASE 49 U/L (12-78); ALBUMIN 2.8 g/dL (3.4-5.0); ANION GAP 7 mmol/L (8-16); ASPARTATE AMINOTRANSFERASE 44 U/L (15-37); BILIRUBIN,TOTAL 3.4 mg/dL (0.1-1.0); CALCIUM, TOTAL 8.3 mg/dL (8.8-10.5); CARBON DIOXIDE 24 mmol/L (22-29); CHLORIDE 108 mmol/L (98-107); CREATININE 0.61 mg/dL (0.60-1.30); GLOMERULAR FILTR. RATE CALC > 60 mL/min (>60); PHOSPHORUS 3.4 mg/dL (2.5-4.9); POTASSIUM 4.1 mmol/L (3.5-5.1); SODIUM SERUM 139 mmol/L (136-145); TOTAL PROTEIN, SERUM 5.2 g/dL (6.4-8.2); UREA NITROGEN, BLOOD 11 mg/dL (7-18)
[2017-06-07] MEDS: CefTRIAXone 1 GM/DEXTROSE 50 ML IV SCH (10:20)
[2017-06-07] MEDS ORDERED: SODIUM CHLORIDE 0.9% 50 ML ONE (10:21)
[2017-06-07] MEDS: AZITHROMYCIN 500 MG/NS 250 ML IV SCH (10:31)
[2017-06-07] MEDS: NYSTATIN 15 GM POWDER BOTTLE TP SCH ×2 (10:37→20:05)
[2017-06-07 11:44] VITALS: BP 118/61
[2017-06-07 15:36] VITALS: BP 117/62
[2017-06-07 19:33] VITALS: BP 122/67
[2017-06-07 23:20] VITALS: BP 125/71
[2017-06-08 04:36] VITALS: BP 125/65
[2017-06-08] MEDS ORDERED: INFLUENZA VIRUS VACCINE QVS 2017-18 (3YR+)/PF 60 MCG/0.5 ML SYRINGE IM ONE (05:00)
[2017-06-08] MEDS ORDERED: -PHARMACY VACCINE NOTE- MISC ONE ×2 (05:00)
[2017-06-08 06:58] VITALS: BP 114/63
[2017-06-08] MEDS: POTASSIUM PHOS/SODIUM PHOS MIXTURE 1 POWDER PACKET PO SCH ×2 (07:58→20:10)
[2017-06-08] MEDS: NYSTATIN 15 GM POWDER BOTTLE TP SCH ×2 (07:58→20:16)
[2017-06-08] MEDS: VANCOMYCIN HCL 1.25 GM in DEXTROSE 5%-WATER 250 ML IV SCH ×3 (07:58→23:39)
[2017-06-08] MEDS: PANTOPRAZOLE SODIUM 40 MG/VIAL IVP SCH (07:58)
[2017-06-08 08:01] LABS: ALANINE AMINOTRANSFERASE 47 U/L (12-78); ALBUMIN 2.8 g/dL (3.4-5.0); ANION GAP 8 mmol/L (8-16); ASPARTATE AMINOTRANSFERASE 44 U/L (15-37); BILIRUBIN,TOTAL 2.5 mg/dL (0.1-1.0); CARBON DIOXIDE 25 mmol/L (22-29); CHLORIDE 108 mmol/L (98-107); CREATININE 0.64 mg/dL (0.60-1.30); GLOMERULAR FILTR. RATE CALC > 60 mL/min (>60); POTASSIUM 3.6 mmol/L (3.5-5.1); SODIUM SERUM 141 mmol/L (136-145); TOTAL PROTEIN, SERUM 5.2 g/dL (6.4-8.2); UREA NITROGEN, BLOOD 11 mg/dL (7-18)
[2017-06-08] MEDS: CefTRIAXone 1 GM/DEXTROSE 50 ML IV SCH (10:56)
[2017-06-08] MEDS: AZITHROMYCIN 500 MG/NS 250 ML IV SCH (10:59)
[2017-06-08 11:15] VITALS: BP 106/61
[2017-06-08 15:39] VITALS: BP 121/69
[2017-06-08 19:28] VITALS: BP 124/57
[2017-06-08 23:44] VITALS: BP 111/69
[2017-06-09 05:18] VITALS: BP 122/50
[2017-06-09 06:53] LABS: ANION GAP 6 mmol/L (8-16); CALCIUM, TOTAL 7.9 mg/dL (8.8-10.5); CARBON DIOXIDE 27 mmol/L (22-29); CHLORIDE 108 mmol/L (98-107); CREATININE 0.67 mg/dL (0.60-1.30); GLOMERULAR FILTR. RATE CALC > 60 mL/min (>60); POTASSIUM 3.7 mmol/L (3.5-5.1); SODIUM SERUM 141 mmol/L (136-145); UREA NITROGEN, BLOOD 9 mg/dL (7-18)
[2017-06-09 07:09] VITALS: BP 108/67
[2017-06-09] MEDS: POTASSIUM PHOS/SODIUM PHOS MIXTURE 1 POWDER PACKET PO SCH ×2 (08:30→20:29)
[2017-06-09] MEDS: PANTOPRAZOLE SODIUM 40 MG/VIAL IVP SCH (08:30)
[2017-06-09] MEDS: NYSTATIN 15 GM POWDER BOTTLE TP SCH ×2 (08:30→20:29)
[2017-06-09] MEDS: VANCOMYCIN HCL 1.25 GM in DEXTROSE 5%-WATER 250 ML IV SCH ×3 (08:30→23:59)
[2017-06-09] MEDS ORDERED: SODIUM CHLORIDE 0.9% 250 ML IV ONE ×2 (08:39→09:31)
[2017-06-09] MEDS: CefTRIAXone 1 GM/DEXTROSE 50 ML IV SCH (09:33)
[2017-06-09] MEDS: AZITHROMYCIN 500 MG/NS 250 ML IV SCH (10:26)
[2017-06-09 10:51] VITALS: BP 112/61
[2017-06-09 15:44] VITALS: BP 126/70
[2017-06-09 19:24] VITALS: BP 123/67
[2017-06-10] VITALS (7 sets, daily range): BP systolic 113–131; BP diastolic 64–71
[2017-06-10 06:48] LABS: GLUCOSE COMMENT 1 Received Meds; GLUCOSE,POINT OF CARE 141 MG/DL (70-110)
[2017-06-10 06:58] LABS: ANION GAP 8 mmol/L (8-16); CALCIUM, TOTAL 8.5 mg/dL (8.8-10.5); CARBON DIOXIDE 26 mmol/L (22-29); CHLORIDE 107 mmol/L (98-107); CREATININE 0.65 mg/dL (0.60-1.30); GLOMERULAR FILTR. RATE CALC > 60 mL/min (>60); SODIUM SERUM 141 mmol/L (136-145); UREA NITROGEN, BLOOD 8 mg/dL (7-18)
[2017-06-10] MEDS: PANTOPRAZOLE SODIUM 40 MG/VIAL IVP SCH (08:14)
[2017-06-10] MEDS: VANCOMYCIN HCL 1.25 GM in DEXTROSE 5%-WATER 250 ML IV SCH ×3 (08:14→23:34)
[2017-06-10] MEDS: POTASSIUM PHOS/SODIUM PHOS MIXTURE 1 POWDER PACKET PO SCH ×2 (08:14→20:04)
[2017-06-10] MEDS: CefTRIAXone 1 GM/DEXTROSE 50 ML IV SCH (08:15)
[2017-06-10] MEDS: NYSTATIN 15 GM POWDER BOTTLE TP SCH ×2 (08:24→22:03)
[2017-06-10] MEDS: AZITHROMYCIN 500 MG/NS 250 ML IV SCH (10:10)
[2017-06-10 12:40] LABS: HEMATOCRIT 28.4 % (41-53); HEMOGLOBIN 9.6 g/dL (13.5-17.5); MEAN CORPUSCULAR HEMOGLOBIN 33.7 pg (26.0-34.0); MEAN CORPUSCULAR HGB CONC 33.8 G/dL (31.0-37.0); MEAN CORPUSCULAR VOLUME 100 fL (80-100); PLATELET COUNT (AUTO) 110 K/uL (150-450); RED BLOOD CELL COUNT(AUTO) 2.85 MIL/uL (4.50-5.90); RED CELL DISTRIBUTION WIDTH 21.3 % (11.5-14.5)
[2017-06-10 12:58] LABS: BAND NEUTROPHILS % (MANUAL) 5 % (1-5); EOSINOPHILS % (MANUAL) 1 % (1-6); LYMPHOCYTES % (MANUAL) 19 % (22-44); MYELOCYTES % 1 % (0-0); REACTIVE LYMPHOCYTES 1 % (0-0); TOTAL CELLS COUNTED 100
[2017-06-10] MEDS ORDERED: SODIUM CHLORIDE 0.9% 250 ML IV ONE (17:07)
[2017-06-11 04:30] VITALS: BP 118/60
[2017-06-11 06:28] LABS: ANION GAP 9 mmol/L (8-16); CALCIUM, TOTAL 7.9 mg/dL (8.8-10.5); CARBON DIOXIDE 24 mmol/L (22-29); CHLORIDE 108 mmol/L (98-107); CREATININE 0.73 mg/dL (0.60-1.30); GLOMERULAR FILTR. RATE CALC > 60 mL/min (>60); POTASSIUM 3.3 mmol/L (3.5-5.1); SODIUM SERUM 141 mmol/L (136-145); UREA NITROGEN, BLOOD 8 mg/dL (7-18)
[2017-06-11 08:12] VITALS: BP 104/57
[2017-06-11] MEDS: VANCOMYCIN HCL 1.25 GM in DEXTROSE 5%-WATER 250 ML IV SCH ×3 (09:10→23:22)
[2017-06-11] MEDS: CefTRIAXone 1 GM/DEXTROSE 50 ML IV SCH (10:54)
[2017-06-11] MEDS: PANTOPRAZOLE SODIUM 40 MG/VIAL IVP SCH (10:54)
[2017-06-11] MEDS: POTASSIUM PHOS/SODIUM PHOS MIXTURE 1 POWDER PACKET PO SCH ×2 (10:55→20:43)
[2017-06-11] MEDS: NYSTATIN 15 GM POWDER BOTTLE TP SCH ×2 (10:59→20:43)
[2017-06-11 12:05] VITALS: BP 123/60
[2017-06-11] MEDS: AZITHROMYCIN 500 MG/NS 250 ML IV SCH (12:05)
[2017-06-11 15:24] VITALS: BP 127/61
[2017-06-11 20:05] VITALS: BP 131/72
[2017-06-11 23:12] VITALS: BP 104/58
[2017-06-12 04:54] VITALS: BP 112/61
[2017-06-12 08:02] VITALS: BP 114/66
[2017-06-12] MEDS: CefTRIAXone 1 GM/DEXTROSE 50 ML IV SCH (08:16)
[2017-06-12] MEDS: PANTOPRAZOLE SODIUM 40 MG/VIAL IVP SCH (08:19)
[2017-06-12] MEDS: POTASSIUM PHOS/SODIUM PHOS MIXTURE 1 POWDER PACKET PO SCH ×2 (08:20→19:41)
[2017-06-12] MEDS: NYSTATIN 15 GM POWDER BOTTLE TP SCH ×2 (08:20→19:41)
[2017-06-12 09:20] LABS: CALCIUM, TOTAL 8.1 mg/dL (8.8-10.5); CARBON DIOXIDE 25 mmol/L (22-29); CREATININE 0.83 mg/dL (0.60-1.30); GLOMERULAR FILTR. RATE CALC > 60 mL/min (>60); UREA NITROGEN, BLOOD 8 mg/dL (7-18)
[2017-06-12] MEDS ORDERED: SODIUM CHLORIDE 0.9% 500 ML IV ONE (09:29)
[2017-06-12 09:31] LABS: ANION GAP 5 mmol/L (8-16); CHLORIDE 107 mmol/L (98-107); POTASSIUM 3.9 mmol/L (3.5-5.1); SODIUM SERUM 137 mmol/L (136-145)
[2017-06-12] MEDS: AZITHROMYCIN 500 MG/NS 250 ML IV SCH (09:33)
[2017-06-12] MEDS: VANCOMYCIN HCL 1.25 GM in DEXTROSE 5%-WATER 250 ML IV SCH ×2 (10:46→17:44)
[2017-06-12 12:01] VITALS: BP 119/58
[2017-06-12 13:27] LABS: GLUCOSE,POINT OF CARE 96 MG/DL (70-110)
[2017-06-12 13:44] LABS: INR 1.3 (0.9-1.1); PROTHROMBIN TIME 13.9 SEC (9.4-11.6)
[2017-06-12 15:31] VITALS: BP 122/60
[2017-06-12 19:52] VITALS: BP 128/68
[2017-06-12 23:02] VITALS: BP 118/64
[2017-06-13] MEDS: VANCOMYCIN HCL 1.25 GM in DEXTROSE 5%-WATER 250 ML IV SCH ×2 (00:46→08:12)
[2017-06-13 05:26] VITALS: BP 117/63
[2017-06-13 07:07] LABS: ANION GAP 6 mmol/L (8-16); CARBON DIOXIDE 25 mmol/L (22-29); CHLORIDE 109 mmol/L (98-107); CREATININE 0.68 mg/dL (0.60-1.30); GLOMERULAR FILTR. RATE CALC > 60 mL/min (>60); POTASSIUM 3.7 mmol/L (3.5-5.1); SODIUM SERUM 140 mmol/L (136-145); UREA NITROGEN, BLOOD 8 mg/dL (7-18)
[2017-06-13 08:00] VITALS: BP 116/53
[2017-06-13] MEDS: PANTOPRAZOLE SODIUM 40 MG/VIAL IVP SCH (08:14)
[2017-06-13] MEDS: POTASSIUM PHOS/SODIUM PHOS MIXTURE 1 POWDER PACKET PO SCH ×2 (08:14→20:01)
[2017-06-13] MEDS: NYSTATIN 15 GM POWDER BOTTLE TP SCH ×2 (08:15→20:01)
[2017-06-13] MEDS: CefTRIAXone 1 GM/DEXTROSE 50 ML IV SCH (09:27)
[2017-06-13] MEDS: AZITHROMYCIN 500 MG/NS 250 ML IV SCH (11:01)
[2017-06-13 11:57] VITALS: BP 113/63
[2017-06-13 15:17] LABS: GLUCOSE COMMENT 1 Received Meds; GLUCOSE,POINT OF CARE 123 MG/DL (70-110)
[2017-06-13] MEDS: OXYGEN THERAPY IH SCH (15:42)
[2017-06-13 16:04] VITALS: BP 129/74
[2017-06-13 20:01] VITALS: BP 122/66
[2017-06-13 23:24] VITALS: BP 121/64
[2017-06-14] MEDS ORDERED: ACETAMINOPHEN 325 MG TABLET PO PRN
[2017-06-14 05:04] VITALS: BP 118/68
[2017-06-14 07:39] VITALS: BP 113/66
[2017-06-14] MEDS: POTASSIUM PHOS/SODIUM PHOS MIXTURE 1 POWDER PACKET PO SCH (08:15)
[2017-06-14] MEDS: OXYGEN THERAPY IH SCH (08:19)
[2017-06-14] MEDS: PANTOPRAZOLE SODIUM 40 MG/VIAL IVP SCH (08:19)
[2017-06-14] MEDS: NYSTATIN 15 GM POWDER BOTTLE TP SCH (08:22)
[2017-06-14 11:30] VITALS: BP 121/67
[2017-06-14] MEDS ORDERED: RIFAX550 PO (11:37)
[2017-06-14] MEDS ORDERED: PROP10TA73 PO (11:39)
[2017-06-14] MEDS ORDERED: FURO20 PO (11:39)
[2017-06-14] MEDS ORDERED: SPIR25 PO (11:40)
== END 2017-06-14 14:15 | disposition home or self-care (01) | DRG 720 ==
LOC: EMS 08:56 → ICU 13:22 → 5S 06-03 17:25 → 6N 06-10 14:40
PROVIDERS: ADMIT Hospitalist; ATTEND Hospitalist
PROC: 5A1955Z Respiratory Ventilation, Greater than 96 Consecutive Hours (ICD-10-PCS; principal; 2017-05-28)
PROC: 0BH17EZ Insertion of Endotracheal Airway into Trachea, Via Natural or Artificial Opening (ICD-10-PCS; 2017-05-28)
PROC: 5A09357 Assistance with Respiratory Ventilation, Less than 24 Consecutive Hours, Continuous Positive Airway Pressure (ICD-10-PCS; 2017-05-28)
PROC: 3E0234Z Introduction of Serum, Toxoid and Vaccine into Muscle, Percutaneous Approach (ICD-10-PCS; 2017-06-08)
DX: A41.9 Sepsis, unspecified organism (principal); J96.01 Acute respiratory failure with hypoxia; I21.4 Non-ST elevation (NSTEMI) myocardial infarction; N17.0 Acute kidney failure with tubular necrosis; R65.21 Severe sepsis with septic shock; C22.0 Liver cell carcinoma; E87.2 Acidosis; J18.9 Pneumonia, unspecified organism; I85.00 Esophageal varices without bleeding; K76.6 Portal hypertension; K72.90 Hepatic failure, unspecified without coma; B18.2 Chronic viral hepatitis C; D64.9 Anemia, unspecified; E11.9 Type 2 diabetes mellitus without complications; E83.39 Other disorders of phosphorus metabolism; J96.21 Acute and chronic respiratory failure with hypoxia; K60.2 Anal fissure, unspecified; K74.60 Unspecified cirrhosis of liver; Z83.3 Family history of diabetes mellitus; Z85.05 Personal history of malignant neoplasm of liver; Z23 Encounter for immunization
CPT/HCPCS: 31500; 70450; 71250; 72192; 74150; 82105; 82570; 82805; 82962; 83605; 83735; 83874; 84100; 84156; 84300; 84439; 84443; 87040; 87070; 87081; 87205; 87324; 87449; 87804; 87899; 90471; 92526; 92610; 93005; 93306; 93971; 94002; 94003; 94640; 94660; 96365; 96375; 97116; 97163; 97167; 97530; 97535; 99291; C9113; G0480; G0481; J0330; J0456; J0696; J1940; J2405; J2704; J3370; J3490; J7030; J7040; J7050; J7060; P9047

== ENCOUNTER 2017-06-16 18:40 | Emergency (ER) | payer MEDICAID ==
[~2017-06-16] VITALS: Ht 160 cm; Wt 62.7 kg
[~2017-06-16 18:40] MED LIST: FURO20 PO; PROP10TA73 PO; RIFAX550 PO; SPIR25 PO
[2017-06-16] MEDS ORDERED: FUROSEMIDE 20 MG TABLET PO ONE (19:45)
[2017-06-16] MEDS ORDERED: RIFAXIMIN 550 MG TABLET PO ONE (19:45)
[2017-06-16] MEDS ORDERED: SPIRONOLACTONE 50 MG TABLET PO ONE (19:45)
[2017-06-16 19:57] VITALS: BP 126/70
== END 2017-06-16 20:06 | disposition home or self-care (01) ==
LOC: EMS 18:42
DX: R60.0 Localized edema (principal); M79.89 Other specified soft tissue disorders; I50.9 Heart failure, unspecified; F17.200 Nicotine dependence, unspecified, uncomplicated; Z76.0 Encounter for issue of repeat prescription
CPT/HCPCS: 99284

== ENCOUNTER 2017-06-17 14:50 | Emergency (ER) | payer MEDICAID ==
[~2017-06-17] VITALS: Ht 160 cm; Wt 63.2 kg
[2017-06-17] MEDS ORDERED: SPIRONOLACTONE 50 MG TABLET PO ONE (16:00)
[2017-06-17] MEDS ORDERED: FUROSEMIDE 20 MG TABLET PO ONE (16:00)
[2017-06-17] MEDS ORDERED: RIFAXIMIN 550 MG TABLET PO ONE (16:00)
[2017-06-17] MEDS ORDERED: PROPRANOLOL HCL 10 MG TABLET PO ONE (16:30)
[2017-06-17 16:50] VITALS: BP 138/78
== END 2017-06-17 17:06 | disposition home or self-care (01) ==
LOC: EMS 14:54
DX: I50.9 Heart failure, unspecified (principal)
CPT/HCPCS: 99284